=== PATIENT | female | born 1965 | race Hispanic/Latino ===

== ENCOUNTER 2019-09-17 12:06 | Outpatient (CLI) | payer OTHER ==
[2019-09-18 13:13] LABS: SARS-CoV-2 MS2 Positive; SARS-CoV-2 N Gene Negative; SARS-CoV-2 S Gene Negative; SARS-CoV-2 orf1ab Negative
== END 2019-09-17 12:07 | disposition home or self-care (01) ==
LOC: LABBT 12:06
PROVIDERS: ATTEND Orthopaedic Surgery
DX: Z01.812 Encounter for preprocedural laboratory examination (principal); Z11.59 Encounter for screening for other viral diseases; S82.842A Displaced bimalleolar fracture of left lower leg, initial encounter for closed fracture
CPT/HCPCS: 87635; U0003

== ENCOUNTER 2019-09-19 12:03 | Day surgery (SDC) | payer OTHER ==
[2019-09-17 12:44] VITALS: BMI 32.2
[2019-09-19] MEDS ORDERED: Fentanyl 100 MCG/2 ML VIAL ONE ×4 (12:52→15:40)
[2019-09-19] MEDS ORDERED: Midazolam HCl 2 mg/2 ml Vial ONE ×2 (12:52→13:09)
[2019-09-19] MEDS ORDERED: Dexamethasone 4 mg/ml Vial ONE (12:56)
[2019-09-19] MEDS ORDERED: Ropivacaine 0.5% HCl/PF (150 MG/30 ML VIAL) ONE (13:00)
[2019-09-19] MEDS ORDERED: PROPOFOL 200 MG/20 ML VIAL ONE (13:00)
[2019-09-19] MEDS ORDERED: Lidocaine 1% PF 5 ML VIAL ONE (13:00)
[2019-09-19] MEDS ORDERED: Ondansetron PF 4 MG/2 ML Vial ONE (13:00)
[2019-09-19] MEDS ORDERED: Dexamethasone 20 MG/5 ML VIAL ONE ×2 (13:00)
[2019-09-19] MEDS ORDERED: EPHEDRINE 25 MG/5 ML SYRINGE ONE (13:00)
[2019-09-19] MEDS ORDERED: Ketorolac Tromethamine 30 MG/ML VIAL ONE (13:00)
--- NOTE | 2019-09-19 19:10 | RAD ---
THREE FLUOROSCOPIC SPOT IMAGES OF THE LEFT ANKLE: 09/19/19 INDICATIONS: ORIF of left ankle. COMPARISON: Left ankle radiograph dated 08/30/18. FINDINGS: Since the comparison examination there has been interval open reduction internal fixation of the medi al malleolar fracture and the distal fibular shaft fracture. Fracture alignment is near anatomic. Ti biotalar articulation and ankle mortise appear within normal limits. Total fluoroscopic time is 20 se conds. Total exposure was 0.55 mGy. IMPRESSION: Interval ORIF of left ankle fracture. POS: POLLO
--- NOTE | 2019-09-19 22:50 | OP ---
DATE OF PROCEDURE: 09/19/2019 PREOPERATIVE DIAGNOSIS: Left bimalleolar ankle fracture. POSTOPERATIVE DIAGNOSIS: Left bimalleolar ankle fracture. PROCEDURE PERFORMED: Open reduction and internal fixation of left bimalleolar ankle fracture. ANESTHESIA: General and block. CHUTE WORKER: Young Blackwell PA-C. TOURNIQUET TIME: Approximately 45 minutes at 300 mmHg. IMPLANTS: Synthes 7-hole 1/3 tubular locking plate. COMPLICATIONS: None. DRAINS: None. SPECIMEN: None. OUTCOME: Satisfactory. INDICATIONS FOR PROCEDURE: The patient is a 54-year-old lady status post twisting injury, sustaining a left bimalleolar ankle fracture. After discussion with the patient including risks and benefits, we decided to proceed with open reduction and internal fixation of this fracture. Informed consent has been obtained and I believe all questions have been answered. DESCRIPTION OF PROCEDURE: The patient was brought to the operating room and a time-out performed followed by induction of general anesthesia. Next, a sterile prep and drape was performed of left lower extremity. The limb was then exsanguinated with Esmarch bandage, tourniquet inflated to 300 mmHg. Next, a vertical incision was made over the lateral malleolus. After the skin was sharply incised, dissection was carried down bluntly. It should be noted that the superficial peroneal nerve was encountered in a somewhat posterior location, I really draped right across the surgical incision site. This was identified and protected. Next, dissection was carried down to the fibula using minimal subperiosteal dissection and the fracture edges were exposed. There was found to be some early callus formation as well as some mild shortening of the fibula. The callus was taken down with combination of elevators and rongeur. Once mobilized, the fracture was then reduced and held out to length. A 7-hole 1/3 tubular plate was then applied over the lateral cortex of the distal fibula. This also held in place with a bone clamp. A cortical screw was placed proximal to the fracture and additional cortical screw distal to the fracture, getting reasonably good stabilization of the fracture. Additional screws were then placed proximally and distally including one central interfragmentary through the plate screw. AP and lateral C-arm images were obtained that showed anatomic alignment of the distal fibula and reduction of the mortise. With this reduction of the mortise, the medial malleolus actually fell into an anatomic location and as such, we proceeded with a percutaneous stabilization of this bone. Two small stab wounds were made medially and then under C-arm guidance, a drill was passed through the skin incisions, through the tip of the medial malleolus up in the distal tibial metaphysis. Once appropriately positioned, 45 mm partially-threaded cancellous screws were placed up each of these drill holes, getting good compression of the medial malleolus. Final AP, lateral, and mortise images of the ankle were obtained and saved and then the wounds closed. The lateral wound was closed in layers with 0 Vicryl deep, followed by 2-0 Vicryl and samantha for the skin. Samantha also used for the two small stab wounds medially. Xeroform gauze, Webril, and fiberglass splint was applied to the ankle. Tourniquet was let down and the patient was transferred to recovery room in stable condition. There were no complications. She tolerated the procedure well. Job ID: [id number]
== END 2019-09-19 17:00 | disposition home or self-care (01) ==
LOC: SDC 12:03
PROVIDERS: ATTEND Orthopaedic Surgery
PROC: 0QSK04Z Reposition Left Fibula with Internal Fixation Device, Open Approach (ICD-10-PCS; principal; 2019-09-19)
PROC: 0QSH04Z Reposition Left Tibia with Internal Fixation Device, Open Approach (ICD-10-PCS; principal; 2019-09-19)
DX: S82.842A Displaced bimalleolar fracture of left lower leg, initial encounter for closed fracture (principal); Z87.891 Personal history of nicotine dependence
CPT/HCPCS: 76000; C1713; J0690; J1100; J1885; J2001; J2250; J2405; J2704; J2795; J3010